=== PATIENT | female | born 1995 | race African-American/Black ===

== ENCOUNTER 2024-04-21 23:34 | Emergency (ER) | payer MEDICAID ==
[~2024-04-21] VITALS: Ht 157.5 cm; Wt 60.0 kg
[2024-04-21 23:34] VITALS: BP 131/85; PULSE 105; RESP 16; O2SAT 99
== END 2024-04-22 01:53 | disposition left against medical advice (07) ==
LOC: ER 23:34
DX: R21 Rash and other nonspecific skin eruption (principal); L29.9 Pruritus, unspecified; Z53.21 Procedure and treatment not carried out due to patient leaving prior to being seen by health care provider